=== PATIENT | female | born 1980 | race Caucasian/White ===

== ENCOUNTER 2023-04-19 10:29 | Emergency (ER) | payer MEDICAID ==
[~2023-04-19] VITALS: Ht 165.1 cm; Wt 75.0 kg
[2023-04-19 10:35] VITALS: O2SAT 97
[2023-04-19] MEDS ORDERED: PREDNISONE 20MG TABLET PO ONE (11:00)
[2023-04-19] MEDS ORDERED: ALBU6.7H3 INH (11:53)
[2023-04-19] MEDS ORDERED: P50 MT (11:53)
[2023-04-19 12:27] VITALS: BP 112/58; PULSE 60; RESP 18; TEMP 98.5
== END 2023-04-19 12:28 | disposition home or self-care (01) ==
LOC: ER 10:29
DX: R07.89 Other chest pain (principal); J45.909 Unspecified asthma, uncomplicated
CPT/HCPCS: 99283; 71045; 93005; J7512